=== PATIENT | female | born 1945 | race Caucasian/White ===

== ENCOUNTER 2017-02-23 08:22 | Day surgery (SDC) | payer BC ==
[2017-02-19 11:16] VITALS: BMI 32.5
[2017-02-23 08:46] VITALS: TEMP 98.1
[2017-02-23] MEDS ORDERED: LIDOCAINE HCL/PF 2% SDV 5ML VIAL ONE (09:17)
[2017-02-23] MEDS ORDERED: PROPOFOL 20 ML ONE ×2 (09:17)
[2017-02-23 11:02] VITALS: PULSE 82
[2017-02-23 11:16] VITALS: BP 129/78
== END 2017-02-23 11:30 | disposition home or self-care (01) ==
LOC: FASU-ENDO 08:22
PROVIDERS: ATTEND Internal Medicine Gastroenterology
PROC: 0DJD8ZZ Inspection of Lower Intestinal Tract, Via Natural or Artificial Opening Endoscopic (ICD-10-PCS; principal; 2017-02-23 10:29)
DX: Z12.11 Encounter for screening for malignant neoplasm of colon (principal); K57.30 Diverticulosis of large intestine without perforation or abscess without bleeding